=== PATIENT | female | born 1995 | race Caucasian/White ===

== ENCOUNTER 2020-09-17 17:34 | Emergency (ER) | payer OTHER ==
[~2020-09-17] VITALS: Ht 160 cm; Wt 60.8 kg
[2020-09-17 17:50] VITALS: BP 117/63
[2020-09-17 18:29] LABS: BASOPHILS # (AUTO) 0.1 K/uL (0.00-0.22); BASOPHILS % (AUTO) 0.8 % (0.0-2.0); EOSINOPHILS # (AUTO) 0.1 K/uL (0-0.4); EOSINOPHILS % (AUTO) 1.5 % (0.0-4.0); HEMATOCRIT 40.1 % (36-48); HEMOGLOBIN 13.5 g/dL (12.0-16.0); LYMPHOCYTES # (AUTO) 2.1 K/uL (2.5-16.5); LYMPHOCYTES % (AUTO) 30.9 % (20.5-51.1); MEAN CORPUSCULAR HEMOGLOBIN 31 pg (27-31); MEAN CORPUSCULAR HGB CONC 34 g/dL (33-37); MEAN CORPUSCULAR VOLUME 91.9 fL (80-94); MONOCYTES # (AUTO) 0.4 K/uL (0.8-1.0); MONOCYTES % (AUTO) 5.4 % (1.7-9.3); NEUTROPHILS # (AUTO) 4.1 K/uL (1.8-7.7); NEUTROPHILS % (AUTO) 61.4 % (42.2-75.2); PLATELET COUNT (AUTO) 218 K/uL (140-450); RED BLOOD CELL COUNT(AUTO) 4.36 MIL/uL (4.20-5.40); RED CELL DISTRIBUTION WIDTH 12.7 % (11.6-13.7); WHITE BLOOD COUNT (AUTO) 6.7 K/uL (4.8-10.8)
[2020-09-17] MEDS ORDERED: ACETAMINOPHEN EXTRA STRENGTH 500 MG TAB PO ONE (18:40)
[2020-09-17] MEDS ORDERED: ONDANSETRON 4 MG ODT PO ONE (18:40)
[2020-09-17 18:42] LABS: PROTHROMBIN TIME 9.3 secs (10.8-13.4)
[2020-09-17 18:58] LABS: ALBUMIN 3.4 g/dL (3.4-5.0); CREATININE 0.5 mg/dL (0.6-1.3); POTASSIUM 3.5 mmol/L (3.5-5.1); TOTAL BILIRUBIN 0.4 mg/dL (0.0-1.0)
[2020-09-17 19:33] LABS: ANION GAP 17.9 (8-16); CARBON DIOXIDE 22.6 mmol/L (21-32)
[2020-09-17] MEDS ORDERED: KETOROLAC 60 MG/2 ML VIAL IM ONE (19:35)
[2020-09-17] MEDS ORDERED: METHYLERGONOVINE 0.2 MG/ML AMP IM ONE (19:35)
[2020-09-17] MEDS ORDERED: NAPR-54 PO (19:35)
[2020-09-17] MEDS ORDERED: ONDA-24 SL (19:35)
[2020-09-17 20:03] VITALS: BP 117/63
== END 2020-09-17 20:03 | disposition home or self-care (01) ==
LOC: MED 17:34
DX: O03.9 Complete or unspecified spontaneous abortion without complication (principal); Z3A.01 Less than 8 weeks gestation of pregnancy
CPT/HCPCS: 36415; 80053; 81002; 81025; 84702; 85025; 85610; 85730; 86886; 86900; 86901; 96372; 99284; J1885; J2210; Q0162

== ENCOUNTER 2020-09-18 21:56 | Emergency (ER) | payer OTHER ==
[~2020-09-18] VITALS: Ht 160 cm; Wt 63.5 kg
[~2020-09-18 21:56] MED LIST: NAPR-54 PO; ONDA-24 SL
[2020-09-18 22:19] VITALS: BP 93/58
--- NOTE | 2020-09-18 22:28 | NUR ---
25/F C/O VAGINAL BLEEDING WITH PRESSURE AND ABDOMINAL CRAMPING, PASSED CLOT SIZE OF GOLF BALL THIS MORNING; PLANNED [facility] GAVE HER CYTOTEC MEDICATION TO PASS BABY ON 09/16, REPORTS 7 WEEKS OF 09/17 MED HX: 1 SURGICAL IN 2009 ALLERGIES: AMOXICILLIN
[2020-09-19 00:51] LABS: BASOPHILS % (AUTO) 0.6 % (0.0-2.0); EOSINOPHILS # (AUTO) 0.3 K/uL (0-0.4); EOSINOPHILS % (AUTO) 3.4 % (0.0-4.0); HEMOGLOBIN 11.6 g/dL (12.0-16.0); LYMPHOCYTES # (AUTO) 2.9 K/uL (2.5-16.5); LYMPHOCYTES % (AUTO) 38.7 % (20.5-51.1); MEAN CORPUSCULAR HEMOGLOBIN 31 pg (27-31); MEAN CORPUSCULAR HGB CONC 34 g/dL (33-37); MEAN CORPUSCULAR VOLUME 91.6 fL (80-94); MONOCYTES # (AUTO) 0.4 K/uL (0.8-1.0); NEUTROPHILS # (AUTO) 3.8 K/uL (1.8-7.7); NEUTROPHILS % (AUTO) 51.3 % (42.2-75.2); PLATELET COUNT (AUTO) 183 K/uL (140-450); RED BLOOD CELL COUNT(AUTO) 3.71 MIL/uL (4.20-5.40); RED CELL DISTRIBUTION WIDTH 12.8 % (11.6-13.7); WHITE BLOOD COUNT (AUTO) 7.4 K/uL (4.8-10.8)
[2020-09-19 00:53] LABS: BILIRUBIN,URINE NEGATIVE (NEGATIVE); BLOOD, URINE 3+ (NEGATIVE); COLOR,URINE YELLOW (YELLOW); LEUKOCYTE ESTERASE ,URINE NEGATIVE (NEGATIVE); NITRITE, URINE NEGATIVE (NEGATIVE); UGLUCOSE NEGATIVE (NEGATIVE)
[2020-09-19 01:02] LABS: APPEARANCE,URINE HAZY (CLEAR)
[2020-09-19 01:03] LABS: RBC,URINE 0-5 /HPF (0-5); URINE AMORPHOUS URATE 3+ /HPF (None Seen); WBC,URINE 0-5 /HPF (0-5)
[2020-09-19 01:09] LABS: ANION GAP 12.8 (8-16); CARBON DIOXIDE 25.9 mmol/L (21-32); CREATININE 0.5 mg/dL (0.6-1.3); POTASSIUM 3.7 mmol/L (3.5-5.1); TOTAL BILIRUBIN 0.2 mg/dL (0.0-1.0)
--- NOTE | 2020-09-19 01:27 | NUR ---
Ultrasound at bedside.
--- NOTE | 2020-09-19 03:27 | NUR ---
COVID AARON SWAB COLLECTED AND SENT TO LAB
[2020-09-19 04:09] VITALS: BP 105/58
--- NOTE | 2020-09-19 04:09 | NUR ---
Patient discharged with v/s stable. Written and verbal after care instructions given and explained. Patient verbalized understanding. Ambulatory with steady gait. All questions addressed prior to discharge. Advised to follow up with PMD.
== END 2020-09-19 04:09 | disposition home or self-care (01) ==
LOC: MED 21:56
DX: O03.4 Incomplete spontaneous abortion without complication (principal); Z20.822 Contact with and (suspected) exposure to COVID-19; Z88.1 Allergy status to other antibiotic agents; Z79.899 Other long term (current) drug therapy
CPT/HCPCS: 36415; 76856; 80053; 81001; 81025; 85025; 87086; 99284